=== PATIENT | male | born 1950 | race Caucasian/White ===

== ENCOUNTER 2017-01-07 21:02 | Emergency (ER) | payer MEDICAID ==
[~2017-01-07] VITALS: Ht 170.2 cm; Wt 65.5 kg
[2017-01-07 21:05] VITALS: Ht 170.2 cm; Wt 65.5 kg
[2017-01-07] MEDS ORDERED: DIPHENHYDRAMINE 50 MG INJ IV STA (21:14)
[2017-01-07] MEDS ORDERED: METHYLPREDNISOLONE 125 MG INJ IV STA (21:14)
[2017-01-07] MEDS ORDERED: EPINEPHrine 1 MG INJ IM STA (21:14)
[2017-01-07] MEDS ORDERED: FAMOTIDINE 20 MG INJ INJ STA (21:14)
[2017-01-07] MEDS ORDERED: RACEPINEPHRINE 2.25%(NEB) 0.5 ML AMP HHN ONE (21:30)
[2017-01-07 21:42] LABS: ADD SCAN DIFF NO
[2017-01-07 21:45] LABS: BASOPHIL # 0.1 10^3/ul (0.0-0.1); BASOPHILS % 0.8 % (0.0-2.0); EOSINOPHILS # 0.3 10^3/ul (0.0-0.5); EOSINOPHILS % 4.5 % (0.0-7.0); HEMATOCRIT 42.4 % (42.0-52.0); HEMOGLOBIN 15.3 g/dl (14.0-18.0); LYMPHOCYTES # 2.7 10^3/ul (0.8-2.9); MEAN CORPUSCULAR HEMOGLOBIN 31.9 pg (29.0-33.0); MEAN CORPUSCULAR HGB CONC 36.1 g/dl (32.0-37.0); MEAN CORPUSCULAR VOLUME 88.5 fl (82.0-101.0); MEAN PLATELET VOLUME 10.9 fl (7.4-10.4); MONOCYTE # 0.4 10^3/ul (0.3-0.9); MONOCYTES % 5.8 % (0.0-11.0); NEUTROPHIL # 2.6 10^3/ul (1.6-7.5); NEUTROPHILS % 43.6 % (39.0-77.0); PLATELET COUNT 158 10^3/UL (140-415); RED BLOOD COUNT 4.79 10^6/ul (4.70-6.10); RED CELL DISTRIBUTION WIDTH 12.4 % (11.5-14.5); WHITE BLOOD COUNT 6.1 10^3/ul (4.8-10.8)
[2017-01-07 21:57] LABS: POTASSIUM 3.6 mmol/L (3.5-5.1)
[2017-01-07 21:59] LABS: CREATININE 0.91 mg/dl (0.61-1.24)
[2017-01-07 22:01] LABS: CALCIUM 8.8 mg/dl (8.4-10.2)
--- NOTE | 2017-01-07 22:48 | ERD ---
ER Documentation Chief Complaint Date/Time DATE: 01/07/17 TIME: 22:46 Chief Complaint took diclofenac2 tabs w/ benadryl 50 mg 25 mgsince 4 hrs ago= lost of voice HPI 66-year-old male who presents to the emergency room after taking diclofenac. The patient feels that his throat is swelling. He denies any rash. The family states that his face appears to be slightly more swollen than baseline. The patient took some Benadryl prior to arrival and no mild improvement. He denies any lip swelling or tongue swelling. No significant difficulty breathing or drooling. The patient is able to verbalize his name but then refuses to talk. ROS All systems reviewed and are negative except as per history of present illness. Allergies Allergies: Coded Allergies: No Known Allergy (Unverified , 01/07/17) PMhx/Soc Hx Alcohol Use: No Hx Substance Use: No Hx Tobacco Use: No Smoking Status: Never smoker FmHx Family History: No diabetes Physical Exam Vitals Vital Signs Date Time Temp Pulse Resp B/P Pulse Ox O2 Delivery O2 Flow Rate FiO2 01/07/17 22:42 84 16 127/75 98 Room Air 01/07/17 21:47 Nasal Cannula 2.0 01/07/17 21:35 75 18 93 21 01/07/17 21:05 98.3 73 20 170/89 95 Physical Exam General: Patient is refusing to talk but then when asked to verbalize his name he is able to do so without difficulty Head: Normocephalic, atraumatic. Eyes: Pupils equally reactive, EOM intact ENT: Moist mucous membranes, posterior pharynx without swelling or exudates, uvula is midline, no drooling, no angioedema, no tongue swelling Neck: Supple, no lymphadenopathy Respiratory: Lungs clear bilaterally, no distress Cardiovascular: RRR, no murmurs, rubs, or gallops Abdominal: Soft, non-tender, non-distended, no peritoneal signs : Deferred MSK: No edema, no unilateral swelling, 5/5 strength Neurologic: Alert and oriented, moving all extremities, normal speech, no focal weakness, no cerebellar signs Skin: No rash Psych: Normal mood Result Diagram: 01/07/17213301/07/172133 Results 24 hrs Laboratory Tests Test 01/07/17 21:34 Anion Gap 17 Basophils # 0.110^3/ul Basophils % 0.8% Blood Urea Nitrogen 11mg/dl Calcium Level 8.8mg/dl Carbon Dioxide Level 24mmol/L Chloride Level 106mmol/L Creatinine 0.91mg/dl Eosinophils # 0.310^3/ul Eosinophils % 4.5% Glucose Level 123mg/dl Hematocrit 42.4% Hemoglobin 15.3g/dl Lymphocytes # 2.710^3/ul Lymphocytes % 45.0% Mean Corpuscular Hemoglobin 31.9pg Mean Corpuscular Hemoglobin Concent 36.1g/dl Mean Corpuscular Volume 88.5fl Mean Platelet Volume 10.9fl Monocytes # 0.410^3/ul Monocytes % 5.8% Neutrophils # 2.610^3/ul Neutrophils % 43.6% Nucleated Red Blood Cells # 0.010^3/ul Nucleated Red Blood Cells % 0.0/100WBC Platelet Count 59155^3/UL Potassium Level 3.6mmol/L Red Blood Count 4.7910^6/ul Red Cell Distribution Width 12.4% Sodium Level 143mmol/L White Blood Count 6.110^3/ul Current Medications Medications (Trade) Dose Ordered Sig/[place] Route PRN Reason Start Time Stop Time Status Last Admin Dose Admin Diphenhydramine HCl (Benadryl) 25 mg ONCE STAT IV 01/07/17 21:14 01/07/17 21:16 DC 01/07/17 21:38 Epinephrine (EPINEPHrine) 0.3 mg ONCE STAT IM 01/07/17 21:14 01/07/17 21:16 DC 01/07/17 21:39 Famotidine (Pepcid Iv) 20 mg ONCE STAT INJ 01/07/17 21:14 01/07/17 21:16 DC 01/07/17 21:38 Methylprednisolone Sodium Succinate (Solu-Medrol) 125 mg ONCE STAT IV 01/07/17 21:14 01/07/17 21:16 DC 01/07/17 21:37 Epinephrine (Racepinephrine 2.25% (Neb)) 0.5 ml ONCE ONCE HHN 01/07/17 21:30 01/07/17 21:31 DC 01/07/17 21:35 Procedures/MDM EKG, MONITORS, & DIAGNOSTIC IMAGING: CT neck soft tissue: IMPRESSION: 1. Mild prominence of the uvula is nonspecific likely related to pharyngitis but there is no evidence of abscess, mass or adenopathy on this unenhanced exam. 2. 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 3. Multilevel degenerative spondylosis of the cervical spine and lordotic straightening with disk narrowing greatest at the C5-6 level. LAB INTERPRETATION: No leukocytosis MEDICAL DECISION MAKING: The patient presents with a throat closing sensation. Some of this appears to be possibly behavioral because the patient states that he cannot talk but when he verbalizes he does so without difficulty without stridor. The patient has no other signs of allergic reaction he has no tongue swelling, no angioedema, no rash. He has no wheezing. This is possibly related to globus hystericus versus allergic reaction secondary to diclofenac. Given that the patient is concerning for possible airway involvement the patient will benefit from allergy treatment including Solu-Medrol, Benadryl, Pepcid, epinephrine. The patient does not have cardiac disease. He will require 4 hours of observation in the emergency room. CT of the neck soft tissue will be obtained to rule out mass, significant airway swelling. The patient has no stridor no drooling and is otherwise playful and interactive with his family. ER COURSE: The patient's CT does not show any evidence of impending airway involvement. The patient will require 4 hours of observation status post epinephrine. If the patient continues to be well-appearing, can tolerate oral intake I believe the patient can be safely discharged with outpatient management. Again the patient continues to be well-appearing with improved symptoms. Patient endorsed a Dr. Worthington to follow-up on disposition. I kept the patient and/or family informed of laboratory and diagnostic imaging results throughout the emergency room course. DISPOSITION PLAN: We discussed follow up with the patient's primary care doctor within 24 to 48 hours as needed. We also discussed return to the emergency room for worsening symptoms or worsening condition. Discharge Medications: Benadryl, prednisone Departure Diagnosis: Primary Impression: Allergic reaction Encounter type: initial encounter Qualified Code: T78.40XA - Allergic reaction, initial encounter Additional Impression: Globus hystericus Condition: Stable JUANITA COOL MD Jan 07, 2017 22:48
--- NOTE | 2017-01-07 23:06 | RADRPT ---
PROCEDURE: CT soft tissue neck without to contrast CLINICAL INDICATION: Difficulty swallowing and throat discomfort TECHNIQUE: A CT of the neck was performed utilizing axial sections from the from the thoracic inle t through the skull base without intravenous contrast. Coronal and sagittal images were also reforma tted. The exam CTDI vol = 9.31 mGy and DLP = 211.77 mGy-cm. COMPARISON: None available FINDINGS: Visualized intracranial structures and skull base: Mass air cells and included paranasal sinuses are clear. No posterior fossa abnormality is evident the fourth ventricle is midline Nasopharynx, oropharynx and tongue base: No evidence of inflammation or mass lesion, the parapharyng eal fat planes are preserved. No tonsillar abnormalities are demonstrated. The retropharyngeal are a is unremarkable without evidence of collection. There is slight prominence of the uvula which may relate to nonspecific pharyngitis Parotid and senior care assistant spaces: The glands are normal in size and morphology bilaterally without mass es, inflammation are calcifications. The muscles of mastication and temporomandibular joints are re markable for right greater than left TMJ osteoarthrosis. No muscular abnormality is present Carotid spaces: The lymph nodes are normal in size bilaterally and there is no evidence of mass lesi on or inflammation. The vascular structures are normal in caliber and there is no evidence of ather osclerotic calcification Submandibular and submental spaces: The glands are normal and symmetric without inflammation or calc ifications. There is no evidence of adenopathy. The sublingual space is also unremarkable Posterior triangles: Normal bilaterally, the spinal accessory chain lymph nodes are normal in size Larynx and infraglottic airway: The epiglottis, vocal cords, piriform sinuses and trachea are within the limits of normal Visceral space: The thyroid gland is normal in size. The cervical esophagus shows no abnormality Supraclavicular fossae: No evidence of mass lesion, adenopathy or inflammation Visualized thorax: No abnormalities are demonstrated Cervical spine: Multilevel degenerative spondylosis with disk narrowing greatest at the C5-6 and C6- 7 and multilevel facet arthropathy. There is lordotic straightening which is possibly from position ing or muscle spasm. There is no fracture, lytic or blastic lesion RPTAT:HJJR IMPRESSION: 1. Mild prominence of the uvula is nonspecific likely related to pharyngitis but there is no eviden ce of abscess, mass or adenopathy on this unenhanced exam. 2. 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 3. Multilevel degenerative spondylosis of the cervical spine and lordotic straightening with disk n arrowing greatest at the C5-6 level. Berto Ceron Physician Date Time Electronically viewed and signed by Berto Ceron Physician on 01/07/2017 23:06 JR/
[2017-01-07] MEDS ORDERED: PRED20TA PO (23:14)
[2017-01-07] MEDS ORDERED: BEN50 PO (23:14)
[2017-01-08 00:50] VITALS: BP 140/86; PULSE 73; RESP 17
== END 2017-01-08 01:02 | disposition home or self-care (01) ==
LOC: E/R 21:02
DX: R09.89 Other specified symptoms and signs involving the circulatory and respiratory systems (principal); F45.8 Other somatoform disorders; T39.395A Adverse effect of other nonsteroidal anti-inflammatory drugs [NSAID], initial encounter
CPT/HCPCS: 70490; 80048; 85025; 94664; 96372; 96374; 96375; J0171; J1200; J2930; Z7502; Z7610

== ENCOUNTER 2017-02-28 00:04 | Emergency (ER) | payer MEDICAID ==
[~2017-02-28] VITALS: Ht 160 cm; Wt 67.3 kg
[~2017-02-28 00:04] MED LIST: BEN50 PO; PRED20TA PO
[2017-02-28 00:16] VITALS: Ht 160 cm; Wt 67.3 kg
--- NOTE | 2017-02-28 00:19 | ERA ---
ER Documentation Chief Complaint Date/Time DATE: 02/28/17 TIME: 00:18 Chief Complaint Possible drug allergy HPI The patient is a 66-year-old male, presenting to the ER because he felt as if he is having trouble breathing since 5 PM after he took Motrin at 4 PM for his arthritis. He had Motrin before without any problem. He denies fever, chills, neck pain, chest pain, dyspnea, palpitation, abdominal pain, vomiting, dysuria. He denies feeling of enlarged tongue, inability to speak or swallow. He does not smoke nor drink Past medical history: Osteoarthritis, anxiety Past surgical history: None ROS All systems reviewed and are negative except as per history of present illness. Medications Home Meds Active Scripts Prednisone* (Prednisone*) 50 Mg Tablet, 50 MG PO DAILY for 5 Days, TAB Prov:MARIA GUADALUPE KNUTSON MD 02/28/17 Famotidine* (Pepcid*) 20 Mg Tablet, 20 MG PO BID for 7 Days, TAB Prov:MARIA GUADALUPE KNUTSON MD 02/28/17 Diphenhydramine Hcl* (Benadryl*) 50 Mg Cap, 50 MG PO Q6 Y for ALLERGIC REACTION , #30 CAP Prov:MARIA GUADALUPE KNUTSON MD 02/28/17 Reported Medications Ibuprofen* (Ibuprofen*) 800 Mg Tab, 800 MG PO TID Y for PAIN, TAB 02/28/17 Discontinued Scripts Prednisone* (Prednisone*) 20 Mg Tab, 40 MG PO DAILY for 5 Days, TAB Prov:JUANITA COOL MD 01/07/17 Diphenhydramine Hcl* (Benadryl*) 50 Mg Cap, 50 MG PO Q6H Y for ALLERGIC REACTION , #30 CAP Prov:JUANITA COOL MD 01/07/17 Allergies Allergies: Coded Allergies: No Known Allergy (Unverified , 02/28/17) PMhx/Soc Hx Alcohol Use: No Hx Substance Use: No Hx Tobacco Use: No Physical Exam Vitals Vital Signs Date Time Temp Pulse Resp B/P Pulse Ox O2 Delivery O2 Flow Rate FiO2 02/28/17 00:16 98.9 70 15 157/94 98 Physical Exam Const: No acute distress. Anxious Head: Atraumatic. Eyes: Normal Conjunctiva. ENT: Normal External Ears, Nose and Mouth. Oropharynx is within normal limit Neck: Full range of motion. No meningismus. Resp: Clear to auscultation bilaterally. Cardio: Regular rate and rhythm, no murmurs. Abd: Soft, non distended, normal bowel sounds, non tender. Skin: No petechiae or rashes. Back: No midline or flank tenderness. Ext: No cyanosis, or edema. Neur: Awake and alert. No focal deficit Psych: Normal Mood and Affect. Results 24 hrs Current Medications Medications (Trade) Dose Ordered Sig/[place] Route PRN Reason Start Time Stop Time Status Last Admin Dose Admin Methylprednisolone Sodium Succinate (Solu-Medrol) 125 mg ONCE ONCE IV 02/28/17 00:30 02/28/17 00:31 DC 02/28/17 00:23 Famotidine (Pepcid Iv) 20 mg ONCE ONCE IV 02/28/17 00:30 02/28/17 00:31 DC 02/28/17 00:23 Diphenhydramine HCl 50 mg 50 mg ONCE ONCE IV 02/28/17 00:30 02/28/17 00:31 DC 02/28/17 00:23 Sodium Chloride (NS) 1,000 ml @ 1,000 mls/hr Q1H ONCE IV 02/28/17 00:30 02/28/17 01:29 DC 02/28/17 00:23 Procedures/MDM MEDICAL MAKING DECISION: The patient is a 66-year-old male, presenting with possible acute drug allergy. He was treated with 1 L normal saline, Benadryl 50 mg IV, Pepcid 20 mg IV, Solu-Medrol 125 mg IV with good response. The differential diagnoses considered include but are not limited to acute anxiety attack, acute panic attack, acute food allergy Departure Diagnosis: Primary Impression: Drug allergy Condition: Good Comments He was discharged with Benadryl, Pepcid, prednisone I discussed the findings with the patient. I advised the patient to follow-up with the primary physician in about 1-2 days, sooner if needed and return if any concern. The patient's blood pressure was elevated (>120/80) but appears stable without evidence of hypertension emergency or urgency. The patient was counseled about the risks of hypertension and urged to pursue outpatient monitoring and therapy within a week with their primary care physician. MARIA GUADALUPE KNUTSON MD February 28, 2017 00:18
[2017-02-28] MEDS ORDERED: IBUP800T25 PO (00:23)
[2017-02-28] MEDS ORDERED: DIPHENHYDRAMINE 50 MG INJ IV ONE (00:30)
[2017-02-28] MEDS ORDERED: METHYLPREDNISOLONE 125 MG INJ IV ONE (00:30)
[2017-02-28] MEDS ORDERED: SOD CHLORIDE 0.9% 1,000 ML IV ONE (00:30)
[2017-02-28] MEDS ORDERED: FAMOTIDINE 20 MG INJ IV ONE (00:30)
[2017-02-28] MEDS ORDERED: BEN50 PO (02:14)
[2017-02-28] MEDS ORDERED: PRED50TA PO (02:15)
[2017-02-28] MEDS ORDERED: FAMO-18 PO (02:15)
[2017-02-28 02:23] VITALS: BP 149/84; PULSE 71; RESP 16; TEMP 98.3
== END 2017-02-28 02:24 | disposition home or self-care (01) ==
LOC: E/R 00:04
DX: R06.00 Dyspnea, unspecified (principal); T39.315A Adverse effect of propionic acid derivatives, initial encounter
CPT/HCPCS: 96374; 96375; J1200; J2930; J7030; Z7502; Z7610

== ENCOUNTER 2017-11-29 09:59 | Emergency (ER) | END 2017-11-29 13:12 | disposition home or self-care (01) ==

== ENCOUNTER 2018-05-01 18:36 | Emergency (ER) | END 2018-05-02 00:52 | disposition home or self-care (01) ==